=== PATIENT | male | born 1960 | race Caucasian/White ===

== ENCOUNTER → 2018-12-06 | Outpatient (CLI) | payer OTHER ==
--- NOTE | 2018-12-06 08:40 | CT ---
EXAMINATION TYPE: CT brain wo con DATE OF EXAM: 12/06/2018 COMPARISON: None HISTORY: 58-year-old male Other amnesia, dizziness and giddiness TECHNIQUE: Examination was done in axial plane without intravenous contrast. Coronal and sagittal r econstructions performed. CT DLP: 1121 mGycm Automated exposure control for dose reduction was used. FINDINGS: There is no evidence of acute intracranial hemorrhage, acute ischemic changes, mass, mass-effect, or extra-axial fluid collection. There is no effacement of cerebral sulci or basal subarachnoid cister ns. There is no hydrocephalus. There is no midline shift. Slade-white matter distinction is preserv ed. There is mild cerebral cortical volume loss. Partially empty sella incidentally noted. Leftward nasal septal deviation. Mucosal thickening anterior right ethmoid air cells. Mild cerumen wi thin the bilateral external auditory canals. Orbits and globes appear intact. Mastoid air cells well pneumatized. IMPRESSION: Mild cerebral cortical atrophy. No acute intracranial abnormality seen.
== END | disposition home or self-care (01) ==
LOC: RADCTMAIN 08:04
PROVIDERS: ATTEND Family Medicine
DX: G31.9 Degenerative disease of nervous system, unspecified (principal); H55.00 Unspecified nystagmus
CPT/HCPCS: 70450